=== PATIENT | female | born 1960 | race Caucasian/White ===

== ENCOUNTER 2025-01-06 08:15 | Emergency (ER) | payer SELFPAY ==
--- NOTE | 2025-01-06 08:18 | ED_ITS ---
HPI - Extremity Problem General Chief complaint: Extremity Injury, Upper Stated complaint: Right Hand Pain Time Seen by Provider: 01/06/25 08:25 Source: patient and RN notes reviewed Mode of arrival: ambulatory Limitations: no limitations History of Present Illness HPI Narrative: 64-year-old female presents to the [facility] with swelling to the right dorsal hand. States that started a day or 2 ago. No treatment prior to arrival. Patient with a history of a ganglion cyst. Requesting 2 days off work. Related Data Home Medications ?Medication ?Instructions ?Recorded ?Confirmed ?Last Taken ?Type carvedilol 3.125 mg tablet mg 01/06/25 Unknown Histor y hydroxyzine HCl 25 mg tablet mg 01/06/25 Unknown Hist ory lisinopril 20 mg tablet mg 01/06/25 Unknown History sertraline 100 mg tablet mg 01/06/25 Unknown History trazodone 50 mg tablet mg 01/06/25 Unknown History Review of Systems Review of Systems: All systems reviewed & are unremarkable except as noted in HPI and below Constitutional: Constitutional: Reports no additional constitutional complaints ENT: Reports system reviewed and no additional complaints, except as documented Cardiovascular: Cardiovascular: Reports no additional cardiovascular complaints, Denies chest pain and Denies dyspnea Respiratory: Respiratory: Reports no additional respiratory complaints, Denies chest congestion, Denies cough and Denies dyspnea Musculoskeletal: Musculoskeletal: Reports as per HPI Integumentary/Breasts: Skin/Breast: Reports system reviewed and no additional complaints, except as docu PMFSH Comments At the time of my signature, I reviewed and agree with the nursing past medical, surgical, social, and family history. There is no relevant family history pertinent to the patient complaint. Exam Const: General: cooperative, healthy appearing, comfortable, no acute distress, well developed, alert and well nourished Nutritional Appearance: well nourished Orientation/consciousness: patient oriented x3 Limitations: no limitations HENMT: Head: normal to inspection Eyes: General: appearance normal, both eyes and all related structures Alignment and Position: alignment normal Neck: Neck: normal visual inspection, full ROM, no lymphadenopathy and no meningeal signs Chest: Chest palpation & inspection: normal inspection of the chest Resp: Effort & Inspection: normal respiratory effort and able to speak in complete sentences Cardio: Rate: regular rate Skin: General skin exam: normal color and no rashes or lesions noted Neuro: General: patient oriented x3, gait normal, moves all extremities and no meningeal signs Cognition (Neuro): normal cognition Speech: normal speech Gait exam (Neuro): Normal gait present Extrem: General: normal to inspection, full ROM, capillary refill normal and normal gait Right upper extremity: full ROM and Extremity exam: right hand normal capillary refill, neuromotor exam normal wrist extension normal, thumb opposition normal, thumb IP flexion normal, thumb ADduction normal and fingers 2-5 ABduction normal, vascular exam radial pulse present and normal capillary refill, normal ROM of fingers and swelling of the dorsal hand; no abrasions, no lacerations, no ecchymosis, no foreign bodies and no puncture wound Psych: Appearance: grossly normal and well kempt Mental Status: mental status grossly normal Speech and movement: Normal speech and movement present and Clear speech present Affect: normal affect Attitude: cooperative Course Course Level of Care: Express Care Visit Vital Signs Vital signs: Vital Signs Temperature 98.7 F 01/06/25 08:26 Pulse Rate 70 01/06/25 08:26 Respiratory Rate 18 01/06/25 08:26 Blood Pressure 173/86 H 01/06/25 08:26 Pulse Oximetry 99 01/06/25 08:26 Oxygen Delivery Room Air 01/06/25 08:26 Temperature 98.7 F 01/06/25 08:26 Pulse Rate 70 01/06/25 08:26 Respiratory Rate 18 01/06/25 08:26 Blood Pressure 173/86 H 01/06/25 08:26 Pulse Oximetry 99 01/06/25 08:26 Oxygen Delivery Room Air 01/06/25 08:26 Reviewed MDM - Extremity (Nontraumatic) MDM Narrative Medical decision making narrative: Patient sitting in exam room. Patient is nontoxic vitals stable. Patient presents with swelling to the top for hand and requesting a work note. Exam most consistent with a ganglion cyst. Discussed following up with primary as well as possibly seeing a specialist discussed [id number] treatments which patient verbalized understanding. Discharge instructions reviewed with patient, as well as provided in writing per nursing staff. The instructions also include specific and strict return/GO TO THE ER as well as f/u information. All questions have been answered, and the patient deny any further questions with discharge and discharge plan. Some parts of this dictation were generated by voice recognition software and m ay contain typographical and/or grammatical inaccuracies. Differential Diagnosis Differential diagnosis: Likely cellulitis and other (Ganglion cyst, arthritis) Critical Care Time Critical Care Time Critical Care Time: No Discharge Plan Discharge Clinical Impression: Ganglion cyst of finger of right hand Patient Disposition: Home Condition: Stable Instructions: Antibiotic Form, Ganglion Cyst (ED) Additional Instructions: Take Tylenol alternating with Motrin as needed for pain You can wear a supportive pull on compression wrist support Follow-up with primary care provider Patient Language: Portuguese Prescriptions: No Action trazodone 50 mg tablet lisinopril 20 mg tablet sertraline 100 mg tablet carvedilol 3.125 mg tablet hydroxyzine HCl 25 mg tablet Follow-up/Referrals: Jere,Pio Fleming MD [Primary Care Provider, Unknown] Stand Alone Forms: Work/School Release IP Time of Disposition: 08:33
--- OUTSIDE RECORDS SUMMARY | 2025-01-06 08:23 | XMS_ITS | Encounter Summary ---
Author Organization [facility] Address [address] [place] [address] Phone Care Team Providers Care Assembler Sandal Parts Name Role Phone Pio Oquendo MD Primary Care Provider Reason for Visit * Reason Comments Medication Refill Encounter Details Date Type Department Care Team (Late Contact Info) Description 07/31/2020 Refill [facility] - Internal Medicine - [place] [address] [place] [address] Pio Oquendo MD [address] [place] [address] Medication Refill Social History Tobacco Use Types Packs/Day Years Used Date Smoking Tobacco: Never Assessed Comments Unknown Sex and Gender Information Value Date Recorded Sex Assigned at Not on file Legal Sex Female 12:42 AM CDT Gender Identity Not on file Sexual Orientation Not on file documented as of this encounter Miscellaneous Notes * Telephone Encounter - Audrey Masterson RN - 08/01/2020 7:43 AM CDT Please review and sign. documented in this encounter Plan of Treatment Upcoming Encounters Date Type Department Care Team (Late Contact Info) Description 02/08/2025 3:00 PM SENIOR NET ENGINEER Office Visit [facility] - Primary Care - [place] [address] [place] [address] Pio Oquendo MD [address] [place] [address] documented as of this encounter Visit Diagnoses Not on filedocumented in this encounter Care Teams Assembler Sandal Parts Relationship Specialty Start Date End Date Pio Oquendo MD PCP - General Internal Medicine 02/04/20 documented as of this encounter
--- OUTSIDE RECORDS SUMMARY | 2025-01-06 08:23 | XMS_ITS | Encounter Summary ---
Author Organization [facility] Address [address] [place] [address] Phone Care Team Providers Care Helmet Coverer Name Role Phone Pio Oquendo MD Primary Care Provider Reason for Visit * Reason Comments Medication Refill Encounter Details Date Type Department Care Team (Late Contact Info) Description 10/07/2020 Refill [facility] - Internal Medicine - [place] [address] [place] [address] Nithya Chino PAC [address] [place] [address] Medication Refill Social History Tobacco Use Types Packs/Day Years Used Date Smoking Tobacco: Never Assessed Comments Unknown Sex and Gender Information Value Date Recorded Sex Assigned at Not on file Legal Sex Female 12:42 AM CDT Gender Identity Not on file Sexual Orientation Not on file documented as of this encounter Miscellaneous Notes * Telephone Encounter - Audrey Masterson RN - 10/10/2020 1:42 PM CDT Please review and sign. documented in this encounter Plan of Treatment Upcoming Encounters Date Type Department Care Team (Late Contact Info) Description 02/08/2025 3:00 PM PATTERNMAKER PLASTER AND PLASTIC Office Visit [facility] - Primary Care - [place] [address] [place] [id number] Pio Oquendo MD [address] [place] [address] documented as of this encounter Visit Diagnoses Not on filedocumented in this encounter Care Teams Helmet Coverer Relationship Specialty Start Date End Date Pio Oquendo MD PCP - General Internal Medicine 02/04/20 documented as of this encounter
--- OUTSIDE RECORDS SUMMARY | 2025-01-06 08:23 | XMS_ITS | Encounter Summary ---
Author Organization [facility] Address [address] [place] [address] Phone Care Team Providers Care Systems Qa Analyst Name Role Phone Pio Oquendo MD Primary Care Provider [phone] Reason for Visit * Reason Comments Medication Refill Encounter Details Date Type Department Care Team (Late st Contact Info) Description 12/23/2024 Refill [facility] - Internal Medicine - [place] [address] [place] [address] Jak Bangura MD [address] [address] Medication Refill Social History Tobacco Use Types Packs/Day Years Used Date Smoking Tobacco: Every Day Passive Smoke Exposure: Current Smokeless Tobacco: Never Alcohol Use Standard Drinks/Week Comments Yes 0 (1 standard drink = 0.6 oz pur e alcohol) [facility] Utilities Answer Date Recorded In the past 12 months has [employer] electric, gas, oil, or water company threatened to shut off services in your home? No 06/23/2023 Social Connection and Isolation Panel Answer Date Recorded In a typical week, how many times do you talk on the phone with family, friends, or neighbors? More than three times a week 06/23/2023 How often do you get togethe r with friends or relatives? More than three times a week 06/23/2023 How often do you attend chur ch or baptism services? Never 06/23/2023 Do you belong to any clubs o r organizations such as yazdanism groups, unions, fraternal or athletic groups, or school groups? No 06/23/2023 How often do you attend meet ings of the clubs or organizations you belong to? Never 06/23/2023 Are you , , di vorced, , never , or living with a partner? Never 06/23/2023 AUDIT-C Answer Date Recorded Q1: How often do you have a drink containing alc ohol? Monthly or less 06/23/2023 Q2: How many drinks containi ng alcohol do you have on a typical day when you are drinking? 1 or 2 06/23/2023 Q3: How often do you have si x or more drinks on one occasion? Less than monthly 06/23/2023 Overall Financial Resource Strain (CARDIA) Answe r Date Recorded How hard is it for you to pa y for the very basics like food, housing, medical care, and heating? Not hard at all 06/23/2023 PHQ-2 Answer Date Recorded Total Score - Questions 1-9 0 02/05 [facility] - Occupational Stress Questionnaire Answer Date Recorded Do you feel stress - tense, restless, nervous, or anxious, or unable to sleep at night because your mind is troubled all the time - these days? Not at all 06/23/2023 Exercise Vital Sign Answer Date Recorde d On average, how many days pe r week do you engage in moderate to strenuous exercise (like a brisk walk)? 0 days 06/23/2023 On average, how many minutes do you engage in exercise at this level? 0 min 06/23/2023 Hunger Vital Sign Answer Date Recorded Within the past 12 months, y ou worried that your food would run out before you got the money to buy more. Never true 06/23/19 24 Within the past 12 months, t he food you bought just didn't last and you didn't have money to get more. Never true 06/23/2023 PRAPARE - Transportation Answer Date Re corded In the past 12 months, has l ack of transportation kept you from medical appointments or from getting medications? No 06/05 In the past 12 months, has l ack of transportation kept you from meetings, work, or from getting things needed for daily living? No 06/23/2023 Housing Stability Vital Sign Answer Arnoldo e Recorded In the last 12 months, was t here a time when you were not able to pay the mortgage or rent on time? No 06/23/2023 In the last 12 months, how many places have you lived? 1 06/23/2023 In the last 12 months, was t here a time when you did not have a steady place to sleep or slept in a usp (including now)? No 06/23/2023 Sexually Active Control Partners Comments Not Currently Comments No Sex and Gender Information Value Date Recorded Sex Assigned at Not on file Legal Sex Female 12:42 AM CDT Gender Identity Not on file Sexual Orientation Not on file documented as of this encounter Miscellaneous Notes * Telephone Encounter - Pamela Rocha RN - 12/23/2024 4:02 PM CDT Medication failed the protocol, provider to review and approve the medication order if appropriate. Requested Prescriptions Pending Prescriptions Disp Refills hydrOXYzine (ATARAX) 25 MG Tablet [Pharmacy Med Name: hydrOXYzine HCl 25 MG Oral Tablet] 60 Tablet 0 Sig: TAKE 1 TABLET BY MOUTH EVERY 6 HOURS NEEDED FOR ANXIETY Not Delegated - Off Protocol Failed - 12/23/2024 4:02 PM Failed - This refill cannot be delegated Passed - Visit with relevant provider in past 12 months or upcoming 90 days Recent Visits Date Type Provider Dept 02/19/24 [facility] visits within past 365 days and meeting all other requirements Future Appointments Date Type Provider Dept 02/01/25 Appointment Pio Oquendo MD [facility] Showing future appointments within next 90 days and meeting all other requirements documented in this encounter Plan of Treatment Upcoming Encounters Date Type Department Care Team (Late st Contact Info) Description 02/08/2025 3:00 PM RN ADMISSIONS Office Visit [facility] - Primary Care - [place] [address] [place] [phone] Pio Oquendo MD [address] [place] [address] documented as of this encounter Visit Diagnoses Not on filedocumented in this encounter Additional Health Concerns Assessment Noted Time PHQ-9 Depression Total Score: 0 02/19/20 24 9:50 AM RN ADMISSIONS documented as of this encounter Care Teams Systems Qa Analyst Relationship Specialty Start Date End Date Pio Oquendo MD PCP - General Internal Medicine 02/04/20 documented as of this encounter
--- OUTSIDE RECORDS SUMMARY | 2025-01-06 08:23 | XMS_ITS | Encounter Summary ---
Author Organization [facility] Address [address] [place] [address] Phone Care Team Providers Care Wire Weaver Cloth Name Role Phone Pio Oquendo MD Primary Care Provider [phone] Reason for Visit * Reason Comments Medication Refill Encounter Details Date Type Department Care Team (Late st Contact Info) Description 08/31/2022 Refill [facility] - Internal Medicine - [place] [address] [place] [address] Pio Oquendo MD [address] [place] [address] Medication Refill Social History Tobacco Use Types Packs/Day Years Used Date Smoking Tobacco: Every Day Smokeless Tobacco: Never Alcohol Use Standard Drinks/Week Comments Yes 0 (1 standard drink = 0.6 oz pur e alcohol) PHQ-2 Answer Date Recorded Total Score - Questions 1-9 0 08/0 11/2021 Sexually Active Control Partners Comments Not Currently Comments Unknown Sex and Gender Information Value Date Recorded Sex Assigned at Not on file Legal Sex Female 12:42 AM CDT Gender Identity Not on file Sexual Orientation Not on file documented as of this encounter Miscellaneous Notes * Telephone Encounter - Sarah Prasad RN - 09/03/2022 8:59 AM CDT Medication failed the protocol, provider to review and approve the medication order if appropriate. Requested Prescriptions Pending Prescriptions Disp Refills lisinopril (PRINIVIL, ZESTRIL) 20 MG Tablet [Pharmacy Med Name: Lisinopril 20 MG Oral Tablet] 30 Tablet 0 Sig: Take 1 tablet by mouth once daily HA Inhibitors Protocol Failed - 08/31/2022 5:23 PM Failed - Serum potassium on record in past 12 months No results found for: POTASSIUM, POCTK Failed - GFR on record in past 12 months No results found for: GFRNA Passed - Blood pressure on record in past 12 months Clinician-entered: BP Readings from Last 3 Encounters: 11/12/21 128/72 06/21/21 136/76 11/17/20 136/80 Patient-entered: No data recorded Passed - Visit with relevant provider in past 12 months or upcoming 90 days Recent Visits Date Type Provider Dept 05/21/22 Telemedicine Pio Oquendo MD [facility] [place] 11/12/21 Office Visit Pio Oquendo MD [facility] Showing recent visits within past 365 days and meeting all other requirements Future Appointments No visits were found meeting these conditions. Showing future appointments within next 90 days and meeting all other requirements sertraline (ZOLOFT) 100 MG Tablet [Pharmacy Med Name: Sertraline HCl 100 MG Oral Tablet] 30 Tablet 0 Sig: Take 1 tablet by mouth once daily SSRI (6 Month Refill Only) Protocol Passed - 08/31/2022 5:23 PM Passed - Visit with relevant provider in past 6 months or upcoming 90 days Recent Visits Date Type Provider Dept 05/21/22 Telemedicine Pio Oquendo MD [facility] Showing recent visits within past 182 days and meeting all other requirements Future Appointments No visits were found meeting these conditions. Showing future appointments within next 90 days and meeting all other requirements Passed - Patient has established therapy with SSRI for at least 6 months Passed - Has an encounter in the past 6 months with a depression, anxiety, adjustment disorder, OCD, or PTSD visit diagnosis traZODone (DESYREL) 50 MG Tablet [Pharmacy Med Name: traZODone HCl 50 MG Oral Tablet] 30 Tablet 0 Sig: Take 1 Tablet by mouth nightly. Serotonin Modulators (6 Month Refill Only) Protocol Passed - 08/31/2022 5:23 PM Passed - Visit with relevant provider in past 6 months or upcoming 90 days Recent Visits Date Type Provider Dept 05/21/22 Telemedicine Pio Oquendo MD [facility] [place] Showing recent visits within past 182 days and meeting all other requirements Future Appointments No visits were found meeting these conditions. Showing future appointments within next 90 days and meeting all other requirements Passed - Has an encounter in the past 6 months with a depression or anxiety visit diagnosis Passed - No PRN Use for Trazodone Passed - Patient has established therapy with Serotonin Modulators for at least 6 months hydrOXYzine (ATARAX) 25 MG Tablet [Pharmacy Med Name: hydrOXYzine HCl 25 MG Oral Tablet] 60 Tablet 0 Sig: Take 1 Tablet by mouth every 6 hours as needed for Anxiety. There is no refill protocol information for this order documented in this encounter Plan of Treatment Upcoming Encounters Date Type Department Care Team (Late st Contact Info) Description 02/08/2025 3:00 PM WASHER CUTTER Office Visit [facility] - Primary Care - [place] [address] [place] [phone] Pio Oquendo MD [address] [place] [address] documented as of this encounter Visit Diagnoses Not on filedocumented in this encounter Additional Health Concerns Assessment Noted Time PHQ-9 Depression Total Score: 0 11/13/19 22 1:41 PM CDT documented as of this encounter Care Teams Wire Weaver Cloth Relationship Specialty Start Date End Date Pio Oquendo MD PCP - General Internal Medicine 02/04/20 documented as of this encounter
--- OUTSIDE RECORDS SUMMARY | 2025-01-06 08:23 | XMS_ITS | Clinical Summary ---
Author Organization [facility] Address [address] [place] [address] Phone Care Team Providers Care Concrete Paving Machine Operator Name Role Phone Pio Oquendo MD Primary Care Provider Allergies No known active allergies Medications hydrOXYzine (ATARAX) 25 MG Tablet TAKE 1 TABLET BY MOUTH EVERY 6 HOURS NEEDED FOR ANXIETY 60 Tablet 5 Active carvedilol (COREG) 3.125 MG Tablet Take 1 tablet by mouth twice daily 180 Tablet 1 5 Active sertraline (ZOLOFT) 100 MG Tablet Take 1 tablet by mouth once daily 10 Tablet 5 Active lisinopril (PRINIVIL, ZESTRIL) 20 MG Tablet Take 1 tablet by mouth once daily 10 Tablet 5 Active traZODone (DESYREL) 50 MG Tablet Take 1 tablet by mouth nightly 30 Tablet 2 5 Active traZODone (DESYREL) 50 MG Tablet Take 1 tablet by mouth nightly 30 Tablet 5 12/21/19 25 Discontinued sertraline (ZOLOFT) 100 MG Tablet Take 1 tablet by mouth once daily 21 Tablet 5 12/11/19 25 Discontinued lisinopril (PRINIVIL, ZESTRIL) 20 MG Tablet Take 1 tablet by mouth once daily 21 Tablet 5 12/11/19 25 Discontinued Active Problems Problem Noted Date Diagnosed Date Essential (primary) hypertension 04/04/2016 Generalized anxiety disorder 04/04/2016 Encounters Date Type Department Care Team Description 01/04/2025 [facility]ill [facility] [address] [place] [address] Pio Oquendo MD Medication Refill 01/04/2025 Refill [facility] [address] [place] [address] Jak Bangura MD Medication Refill 12/31/2024 Refill [facility] [address] [place] [address] Pio Oquendo MD Medication Refill 12/28/2024 Refill [facility] [address] [place] [address] Jak Bangura MD Medication Refill 12/23/2024 Refill [facility] [address] [place] [address] Jak Bangura MD Medication Refill 12/19/2024 Refill [facility] [address] [place] [address] Pio Oquendo MD Medication Refill 12/10/2024 Refill [facility] [address] [place] [address] Pio Oquendo MD Medication Refill 11/19/2024 Refill [facility] [address] [place] [place] [address] Pio Oquendo MD Medication Refill 10/23/2024 Refill [facility] [address] [place] [address] Nithya Chino, PAC Medication Refill 10/16/2024 Refill [facility] [address] [place] [address] Nithya Chino, PAC Medication Refill 10/11/2024 Refill [facility] - Internal Medicine [facility] [address] [place] [address] Nithya Chino, PAC Medication Refill 10/11/2024 [facility] [address] [place] [address] Pio Oquendo MD Medication Refill from Last 3 Months Immunizations Immunization Administration Dates Next Due Covid-19, Mrna, Lnp-s, Pf, 30 Mcg/0.3 Ml Dose (P fizer) 07/09/2020,06/11/2020 Covid-19, Mrna, Lnp-s, Pf, 3 0 Mcg/0.3 Ml Dose, Josh-sucrose (Pfizer mckeon top) 09/24/2021 Influenza Vaccine, Quadrivalent, PF 01/23/2019 TDAP Vaccine 01/23/2019 Family History Medical History Relation Name Comments No Known Problems Sister Relation Name Status Comments Brother Father Mother Sister Alive Social History Tobacco Use Types Packs/Day Years Used Date Smoking Tobacco: Every Day Passive Smoke Exposure: Current Smokeless Tobacco: Never Tobacco Cessation:Ready to Q uit: No; Counseling Given: No Alcohol Use Standard Drinks/Week Comments Yes 0 (1 standard drink = 0.6 oz pur e alcohol) [facility] Utilities Answer Date Recorded In the past 12 months has [employer], gas, oil, or water raksul threatened to shut off services in your [...] often do you attend chur ch or jehovah's witness services? Never 06/23/2023 Do you belong to any clubs o r organizations such as buddhism groups, unions, fraternal or athletic groups, or [...] Total Score - Questions 1-9 0 02/05 [facility] - Occupational Stress Questionnaire Answer Date Recorded [...] place to sleep or slept in a assisted (including now)? No 06/23/2023 Sexually Active Control Partners Comments Not Currently Comments No Sex and Gender Information Value Date Recorded Sex Assigned at Not on file Legal Sex Female 12:42 AM CDT Gender Identity Not on file Sexual Orientation Not on file Last Filed Vital Signs Vital Sign Reading Time Taken Comments Blood Pressure 130/80 02/19/2024 9:47 AM MATERIALS PLANNER/PRODUCTION PLANNER Pulse 74 02/19/2024 9:47 AM MATERIALS PLANNER/PRODUCTION PLANNER Temperature 37.1 C (98.7 F) 02/19/2024 9:47 AM MATERIALS PLANNER/PRODUCTION PLANNER Respiratory Rate 16 11/12/2021 1:38 PM CDT Oxygen Saturation 97% 02/19/2024 9:47 AM MATERIALS PLANNER/PRODUCTION PLANNER Inhaled Oxygen Concentration - - Weight 72.6 kg (160 lb) 02/19/2024 9:47 AM MATERIALS PLANNER/PRODUCTION PLANNER Height 162.6 cm (5' 4) 02/19/2024 9:47 AM MATERIALS PLANNER/PRODUCTION PLANNER Body Mass Index 27.46 02/19/2024 9:47 AM MATERIALS PLANNER/PRODUCTION PLANNER Plan of Treatment Upcoming Encounters Date Type Department Care Team (Late st Contact Info) Description 02/08/2025 3:00 PM MATERIALS PLANNER/PRODUCTION PLANNER Office Visit [facility] - [facility] - [place] [address] [place] [phone] Pio Oquendo MD [address] [place] [address] Health Maintenance Due Date Last Done Comments Hepatitis C Virus (HCV) Screening 1960 Mammogram 1960 Pneumococcal Immunization (5 0+ years) (1 of 2 - PCV) 07/15/1979 Pap Smear 1981 Cervical Cancer Screening (CCS) 1990 HPV/Cotest 1990 Cologuard 2005 Colonoscopy 2005 Colorectal Cancer Screening 2005 Immunochemical Fecal Occult Blood 2005 Zoster Immunization (1 of 2) 2010 SARS-COV-2 Immunization (4 - 2025-26 season) 2024 09/24/2021, 07/09/2020, 06/11/2020 Td Immunization Every 10 Yea rs (Adults With 1 Tdap) 01/23/2029 01/23/2019 Respiratory Syncytial Virus (RSV) Immunization (Adult) (1 - 1-dose 75+ series) 07/15/2035 DTaP/Tdap/Td Immunization Discontinued 01/23/2019 Influenza Immunization Discontinued 01/23/2019 Hepatitis B Immunization Aged Out No longer eligible based on patient's age to complete this topic Human Papillomavirus (HPV) Immunization Aged Out No longer eligible based on patient's age to complete this topic Meningococcal Immunization (ACWY) Aged Out No longer eligible based on patient's age to complete this topic Rotavirus Immunization Aged Out No lo nger eligible based on patient's age to complete this topic Care Teams Concrete Paving Machine Operator Relationship Specialty Start Date End Date Pio Oquendo MD PCP - General Internal Medicine 02/04/20
--- OUTSIDE RECORDS SUMMARY | 2025-01-06 08:23 | XMS_ITS | Encounter Summary ---
Author Organization [facility] Address [address] [place] [address] Phone Care Team Providers Care Long Line Teamster Name Role Phone Pio Oquendo MD Primary Care Provider [phone] Reason for Visit * Reason Comments Medication Refill Encounter Details Date Type Department Care Team (Late st Contact Info) Description 01/04/2025 Refill [facility] - [place] [address] [place] [address] Jak Bangura MD [address] [address] Medication Refill Social History Tobacco Use Types Packs/Day Years Used Date Smoking Tobacco: Every Day Passive Smoke Exposure: Current Smokeless Tobacco: Never Alcohol Use Standard Drinks/Week Comments Yes 0 (1 standard drink = 0.6 oz pur e alcohol) [facility] Utilities Answer Date Recorded In the past 12 months has [employer] electric, gas, oil, or water company threatened [...] often do you attend chur ch or cheondoism services? Never 06/23/2023 Do you belong to any clubs o r organizations such as islam groups, unions, fraternal or athletic groups, or [...] Total Score - Questions 1-9 0 02/05 [facility] Occupat [facility] - Occupational Stress Questionnaire Answer Date [...] place to sleep or slept in a detention (including now)? No 06/23/2023 Sexually Active Control Partners Comments Not Currently Comments No Sex and Gender Information Value Date Recorded Sex Assigned at Not on file Legal Sex Female 12:42 AM CDT Gender Identity Not on file Sexual Orientation Not on file documented as of this encounter Miscellaneous Notes * Telephone Encounter - Rochelle Mckee RN - 01/05/2025 1:51 PM CDT Medication failed the protocol, provider to review and approve the medication order if appropriate. Requested Prescriptions Pending Prescriptions Disp Refills hydrOXYzine (ATARAX) 25 MG Tablet [Pharmacy Med Name: hydrOXYzine HCl 25 MG Oral Tablet] 60 Tablet 0 Sig: TAKE 1 TABLET BY MOUTH EVERY 6 HOURS NEEDED FOR ANXIETY Not Delegated - Off Protocol Failed - 01/05/2025 1:51 PM Failed - This refill cannot be delegated Passed - Visit with relevant provider in past 12 months or upcoming 90 days Recent Visits Date Type Provider Dept 02/19/24 [facility] within past 365 days and meeting all other requirements Future Appointments Date Type Provider Dept 02/01/25 Appointment Pio Oquendo MD [facility] Showing future appointments within next 90 days and meeting all other requirements documented in this encounter Plan of Treatment Upcoming Encounters Date Type Department Care Team (Late st Contact Info) Description 02/08/2025 3:00 PM EXPERIMENTAL FLIGHT TEST MECHANIC Office Visit [facility] - Primary Care - [place] [address] [place] [phone] Pio Oquendo MD [address] [place] [address] documented as of this encounter Visit Diagnoses Not on filedocumented in this encounter Additional Health Concerns Assessment Noted Time PHQ-9 Depression Total Score: 0 02/19/20 24 9:50 AM EXPERIMENTAL FLIGHT TEST MECHANIC documented as of this encounter Care Teams Long Line Teamster Relationship Specialty Start Date End Date Pio Oquendo MD PCP - General Internal Medicine 02/04/20 documented as of this encounter
--- OUTSIDE RECORDS SUMMARY | 2025-01-06 08:23 | XMS_ITS | Encounter Summary ---
Author Organization [facility] Address [address] [place] [address] Phone Care Team Providers Care Administrative Appeals Tribunal Member Name Role Phone Pio Oquendo MD Primary Care Provider Reason for Visit * Reason Comments Medication Refill Encounter Details Date Type Department Care Team (Late Contact Info) Description 09/03/2020 Refill [facility] Medical [facility] - Internal Medicine - [place] [address] [place] [address] Pio Oquendo MD [address] [place] [address] Medication Refill Social History Tobacco Use Types Packs/Day Years Used Date Smoking Tobacco: Never Assessed Comments Unknown Sex and Gender Information Value Date Recorded Sex Assigned at Not on file Legal Sex Female 12:42 AM CDT Gender Identity Not on file Sexual Orientation Not on file documented as of this encounter Miscellaneous Notes * Telephone Encounter - Audrey Masterson RN - 09/05/2020 8:09 AM CDT Please review and sign. documented in this encounter Plan of Treatment Upcoming Encounters Date Type Department Care Team (Late Contact Info) Description 02/08/2025 3:00 PM MOLD PREPARER Office Visit [facility] Medical [facility] - Primary Care - [place] [address] [place] [address] Pio Oquendo MD [address] [place] [address] documented as of this encounter Visit Diagnoses Not on filedocumented in this encounter Care Teams Administrative Appeals Tribunal Member Relationship Specialty Start Date End Date Pio Oquendo MD PCP - General Internal Medicine 02/04/20 documented as of this encounter
--- OUTSIDE RECORDS SUMMARY | 2025-01-06 08:23 | XMS_ITS | Encounter Summary ---
Author Organization [facility] Address [address] [place] [address] Phone Care Team Providers Care Material Assistant Name Role Phone Pio Oquendo MD Primary Care Provider Reason for Visit * Reason Comments Medication Refill Encounter Details Date Type Department Care Team (Late Contact Info) Description 09/22/2020 Refill [facility] Medical [facility] - Internal Medicine - [place] [address] [place] [address] Pio Oquendo MD [address] [place] [address] Medication Refill Social History Tobacco Use Types Packs/Day Years Used Date Smoking Tobacco: Never Assessed Comments Unknown Sex and Gender Information Value Date Recorded Sex Assigned at Not on file Legal Sex Female 12:42 AM CDT Gender Identity Not on file Sexual Orientation Not on file documented as of this encounter Miscellaneous Notes * Telephone Encounter - Audrey Masterson RN - 09/22/2020 2:05 PM CDT Please review and sign. documented in this encounter Plan of Treatment Upcoming Encounters Date Type Department Care Team (Late Contact Info) Description 02/08/2025 3:00 PM WOOD PILE DRIVER OPERATOR Office Visit [facility] Medical [facility] - Primary Care - [place] [address] [place] [address] Pio Oquendo MD [address] [place] [address] documented as of this encounter Visit Diagnoses Not on filedocumented in this encounter Care Teams Material Assistant Relationship Specialty Start Date End Date Pio Oquendo MD PCP - General Internal Medicine 02/04/20 documented as of this encounter
--- OUTSIDE RECORDS SUMMARY | 2025-01-06 08:23 | XMS_ITS | Encounter Summary ---
Author Organization [facility] Address [address] [facility] [place] [address] Phone Care Team Providers Care Inspector Automatic Typewriter Name Role Phone Pio Oquendo MD Primary Care Provider Reason for Visit * Reason Comments Medication Refill Encounter Details Date Type Department Care Team ([facility] Contact Info) Description 05/20/2020 Refill [facility] Medical [facility] - Internal Medicine - [place] [address] [place] [phone] Pio Oquendo MD [address] [place] [address] Medication Refill Social History Tobacco Use Types Packs/Day Years Used Date Smoking Tobacco: Never Assessed Comments Unknown Sex and Gender Information Value Date Recorded Sex Assigned at Not on file Legal Sex Female 12:42 AM CDT Gender Identity Not on file Sexual Orientation Not on file documented as of this encounter Plan of Treatment Upcoming Encounters Date Type Department Care Team ([facility] Contact Info) Description 02/08/2025 3:00 PM SENIOR QUANTITY SURVEYOR Office Visit [facility] - Primary Care - [place] [address] [place] [phone] Pio Oquendo MD [address] [place] [address] documented as of this encounter Visit Diagnoses Not on filedocumented in this encounter Care Teams Inspector Automatic Typewriter Relationship Specialty Start Date End Date Pio Oquendo MD PCP - General Internal Medicine 02/04/20 documented as of this encounter
--- OUTSIDE RECORDS SUMMARY | 2025-01-06 08:23 | XMS_ITS | Encounter Summary ---
Author Organization [facility] Address [address] [place] [address] Phone Care Team Providers Care Pile Driver Operator Name Role Phone Pio Oquendo MD Primary Care Provider [phone] Reason for Visit * Reason Comments Medication Refill Encounter Details Date Type Department Care Team (Late st Contact Info) Description 12/28/2024 Refill [facility] - [place] [address] [place] [address] Jak Bangura MD [address] [address] Medication Refill Social History Tobacco Use Types Packs/Day Years Used Date Smoking Tobacco: Every Day Passive Smoke Exposure: Current Smokeless Tobacco: Never Alcohol Use Standard Drinks/Week Comments Yes 0 (1 standard drink = 0.6 oz pur e alcohol) [facility] Utilities Answer Date Recorded In the past 12 months has [employer] electric, gas, oil, or water company threatened [...] often do you attend chur ch or samaritan services? Never 06/23/2023 Do you belong to any clubs o r organizations such as protestant groups, unions, fraternal or athletic groups, or [...] Total Score - Questions 1-9 0 02/05 [facility] of Occupat ional [facility] - Occupational Stress Questionnaire Answer Date [...] encounter Miscellaneous Notes * Telephone Encounter - Carolyn Villanueva RN - 12/29/2024 4:54 PM CDT Medication failed the protocol, provider to review and approve the medication order if appropriate. Requested Prescriptions Pending Prescriptions Disp Refills hydrOXYzine (ATARAX) 25 MG Tablet [Pharmacy Med Name: hydrOXYzine HCl 25 MG Oral Tablet] 60 Tablet 0 Sig: TAKE 1 TABLET BY MOUTH EVERY 6 HOURS NEEDED FOR ANXIETY Not Delegated - Off Protocol Failed - 12/29/2024 4:54 PM Failed - This refill cannot be delegated Passed - Visit with relevant provider in past 12 months or upcoming 90 days Recent Visits Date Type Provider Dept 02/19/24 Office Visit [facility] Show[facility] recent visits within past 365 days and meeting all other requirements Future Appointments Date Type Provider Dept 02/01/25 Appointment Pio Oquendo MD [facility] Showing future appointments within next 90 days and meeting all other requirements documented in this encounter Plan of Treatment Upcoming Encounters Date Type Department Care Team (Late st Contact Info) Description 02/08/2025 3:00 PM INFORMATION TECHNOLOGY TEACHER Office Visit [facility] - Primary Care - [place] [address] [place] [phone] Pio Oquendo MD [address] [place] [address] documented as of this encounter Visit Diagnoses Not on filedocumented in this encounter Additional Health Concerns Assessment Noted Time PHQ-9 Depression Total Score: 0 02/19/20 24 9:50 AM INFORMATION TECHNOLOGY TEACHER documented as of this encounter Care Teams Pile Driver Operator Relationship Specialty Start Date End Date Pio Oquendo MD PCP - General Internal Medicine 02/04/20 documented as of this encounter
--- OUTSIDE RECORDS SUMMARY | 2025-01-06 08:23 | XMS_ITS | Encounter Summary ---
Author Organization [facility] Address [address] [place] [address] Phone Care Team Providers Care Dental Treatment Coordinator Name Role Phone Pio Oquendo MD Primary Care Provider [phone] Reason for Visit * Reason Comments Medication Refill Encounter Details Date Type Department Care Team (Late st Contact Info) Description 12/31/2024 Refill [facility] - Internal Medicine - [place] [address] [place] [address] Pio Oquendo MD [address] [place] [address] Medication Refill Social History Tobacco Use Types Packs/Day Years Used Date Smoking Tobacco: Every Day Passive Smoke Exposure: Current Smokeless Tobacco: Never Alcohol Use Standard Drinks/Week Comments Yes 0 (1 standard drink = 0.6 oz pur e alcohol) [facility] Utilities Answer Date Recorded In the past 12 months has [employer], gas, oil, or water company threatened [...] often do you attend chur ch or anabaptist services? Never 06/23/2023 Do you belong to any clubs o r organizations such as zoroastrian groups, unions, fraternal or athletic groups, or [...] Total Score - Questions 1-9 0 02/05 [facility] of Occupat ional Health - Occupational Stress [...] place to sleep or slept in a long term (including now)? No 06/23/2023 Sexually Active Control Partners Comments Not Currently Comments No Sex and Gender Information Value Date Recorded Sex Assigned at Not on file Legal Sex Female 12:42 AM CDT Gender Identity Not on file Sexual Orientation Not on file documented as of this encounter Miscellaneous Notes * Telephone Encounter - Pamela Rocha, RN - 12/31/2024 7:36 AM CDT Medication failed the protocol, provider to review and approve the medication order if appropriate. Requested Prescriptions Pending Prescriptions Disp Refills sertraline (ZOLOFT) 100 MG Tablet [Pharmacy Med Name: Sertraline HCl 100 MG Oral Tablet] 10 Tablet 0 Sig: Take 1 tablet by mouth once daily SSRI (6 Month Refill Only) Protocol Failed - 12/31/2024 7:36 AM Failed - Has an encounter in the past 6 months with a depression, anxiety, adjustment disorder, OCD, or PTSD visit diagnosis Passed - Visit with relevant provider in past 6 months or upcoming 90 days Recent Visits No visits were found meeting these conditions. Showing recent visits within past 182 days and meeting all other requirements Future Appointments Date Type Provider Dept 02/01/25 Appointment Pio Oquendo MD [facility] Showing future appointments within next 90 days and meeting all other requirements Passed - Patient has established therapy with SSRI for at least 6 months lisinopril (PRINIVIL, ZESTRIL) 20 MG Tablet [Pharmacy Med Name: Lisinopril 20 MG Oral Tablet] 10 Tablet 0 Sig: Take 1 tablet by mouth once daily HA Inhibitors Protocol Failed - 12/31/2024 7:36 AM Failed - Serum potassium on record in past 12 months No results found for: POTASSIUM, POCTK Failed - GFR on record in past 12 months No results found for: GFRNA Passed - Blood pressure on record in past 12 months Clinician-entered: BP Readings from Last 3 Encounters: 02/19/24 130/80 06/23/23 136/66 02/19/23 132/66 Patient-entered: No data recorded Passed - Visit with relevant provider in past 12 months or upcoming 90 days Recent Visits Date Type Provider Dept 02/19/24 Office Visit [facility] Show[facility] recent visits within past 365 days and meeting all other requirements Future Appointments Date Type Provider Dept 02/01/25 Appointment [facility] Show[facility] future appointments within next 90 days and meeting all other requirements documented in this encounter Plan of Treatment Upcoming Encounters Date Type Department Care Team (Late st Contact Info) Description 02/08/2025 3:00 PM LATHE MACHINIST Office Visit [facility] - Primary Care - [place] [address] [place] [address] Pio Oquendo MD [address] [place] [address] documented as of this encounter Visit Diagnoses Not on filedocumented in this encounter Additional Health Concerns Assessment Noted Time PHQ-9 Depression Total Score: 0 02/19/20 24 9:50 AM LATHE MACHINIST documented as of this encounter Care Teams Dental Treatment Coordinator Relationship Specialty Start Date End Date Pio Oquendo MD PCP - General Internal Medicine 02/04/20 documented as of this encounter
[2025-01-06 08:26] VITALS: BP 173/86; PULSE 70; RESP 18; TEMP 37.1; O2SAT 99
== END 2025-01-06 08:43 | disposition home or self-care (01) ==
PROVIDERS: Emergency Provider Nurse Practitioner; PCP Internal Medicine
DX: M67.441 Ganglion, right hand (principal); I10 Essential (primary) hypertension; F32.9 Major depressive disorder, single episode, unspecified
CPT/HCPCS: 99211; G0463